=== PATIENT | female | born 1990 | race Caucasian/White ===

== ENCOUNTER 2018-12-18 17:11 | Emergency (ER) | payer OTHER ==
[2018-12-18 17:25] VITALS: BP 126/80
--- NOTE | 2018-12-18 17:34 | UC ---
General HPI - HPI Summary HPI Summary: pt c/o pain to the front of her L knee since Thursday(6 days ago). states hx bursitis and this feels the same. no injury - History of Current Complaint Chief Complaint: UCLowerExtremity Stated Complaint: PAIN LEFT KNEE Time Seen by Provider: 12/18/18 17:23 Hx Obtained From: Patient Hx Last Menstrual Period: year ago- on depo Timing: Constant Pain Intensity: 7 Aggravating: walking Associated Signs & Symptoms: Negative: Edema, Fever - Allergy/Home Medications Allergies/Adverse Reactions: Allergies Allergy/AdvReac Type Severity Reaction Status Date / Time Penicillins AdvReac Intermediate Itching Verified 12/18/18 17:26 contrast dye AdvReac Headache Uncoded 12/18/18 17:26 PMH/Surg Hx/FS Hx/Imm Hx - Additional Past Medical History 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 Endocrine History: Thyroid Disease - CA with resection GI/ History: Other - Pt reports some kidney failure while in the myxedema coma Psychological History: Depression - Surgical History Surgical History: Yes Surgery Procedure, Year, and Place: Thyroidectomy - Family History Known Family History: Positive: Non-Contributory Family History: cancer - Social History Alcohol Use: Rare Substance Use Type: None Smoking Status (MU): Never Smoked Tobacco Review of Systems All Other Systems Reviewed And Are Negative: No Constitutional: Negative: Fever Musculoskeletal: Negative: Decreased ROM, Edema Neurological: Negative: Weakness, Paresthesia, Numbness Physical Exam Triage Information Reviewed: Yes Appearance: Well-Appearing Vital Signs: Initial Vital Signs Temp 98.2 F 12/18/18 17:20 Pulse 104 12/18/18 17:20 Resp 16 12/18/18 17:20 BP 126/80 12/18/18 17:20 Pulse Ox 99 12/18/18 17:20 Vital Signs Reviewed: Yes Eyes: Positive: Conjunctiva Clear Respiratory: Positive: No respiratory distress Cardiovascular: Positive: RRR Neurological: Positive: Other: - LLE: no gross swelling or discoloration. hip non tender. Anterior knee tendernes but no patellar grind. Patella not ballotable. No joint laxity or tenderness over joint line. achilles and ankle are non tender. leg has gross s/v/m function. Psychological: Positive: Age Appropriate Behavior Skin Exam: Normal Skin: Negative: Rashes Course/Dx - Differential Dx - Multi-Symptom Differential Diagnoses: Other - no concern for fx or infection. no joint laxity or effusion. will wrap with leslie and pt may use her crutches for comfort. I will avoid NSAIDS given pt's hx of renal failure during her myxedema coma. will refer to orthopedics. - Diagnoses Provider Diagnosis: Left anterior knee pain Discharge - Sign-Out/Discharge Documenting (check all that apply): Patient Departure All imaging exams completed and their final reports reviewed: No Studies - Discharge Plan Condition: Stable Disposition: HOME Patient Education Materials: Knee Bursitis (ED), Knee Pain (ED) Referrals: Rock Castaneda MD [Medical Doctor] - As Soon As Possible Additional Instructions: USE THE LESLIE DURING DAY AND REMOVE FOR BEDTIME. USE YOUR CRUTCHES FROM HOME. - Billing Disposition and Condition Condition: STABLE Disposition: Home
== END 2018-12-18 17:50 | disposition home or self-care (01) ==
LOC: MERGE 17:11 → UCCORT 17:11
DX: M25.562 Pain in left knee (principal); Z85.850 Personal history of malignant neoplasm of thyroid; E89.0 Postprocedural hypothyroidism
CPT/HCPCS: 99212; G0463

== ENCOUNTER 2019-01-31 14:13 | Emergency (ER) | payer OTHER ==
[2019-01-31 14:43] VITALS: BP 136/89
--- NOTE | 2019-01-31 14:57 | UC ---
Dizzy HPI HPI Summary: 28-year-old female comes in with a chief complaint of dizziness. She was at physical therapy when she stood up and started feeling a spinning sensation. This is about 10:30 this morning. She also reports the left side of her face feels numb and droopy. No headache no fevers. The dizziness is at its worst she feels like he can't speak correctly. No change in vision no difficulty with weakness or numbness in the legs. Patient does have some tingling in the left lower leg that she's had that ever since she has had left knee pain. She is in physical therapy for the knee pain. she took 25 mg meclizine and that did not help with the dizziness. Moving her head and moving her eyes her pupils moving near her make the dizziness worse. - History Of Current Complaint Chief Complaint: UCDizziness Stated Complaint: DIZZINESS Time Seen by Provider: 01/31/19 14:38 Hx Last Menstrual Period: HAS BEEN OVER A YEAR. STOPPED DEPO TWO MONTHS AGO Pain Intensity: 7 - Allergies/Home Medications Allergies/Adverse Reactions: Allergies Allergy/AdvReac Type Severity Reaction Status Date / Time MS Penicillins [Penicillins] AdvReac Intermediate Vomiting Verified 01/31/19 14: 26 Penicillins AdvReac Intermediate Itching Verified 01/31/19 14:26 MRI IV CONTRAST Allergy Severe NAUSEA AND Uncoded 01/31/19 14:26 HEADACHE contrast dye AdvReac Headache Uncoded 01/31/19 14:26 Home Medications: Home Medications Calcium Carbonate CHEW TAB* [Tums*] 2,000 mg PO BID 01/31/19 [History Confirmed 01/31/19] Cholecalciferol (Vitamin D3) [Vitamin D3] 1,000 unit PO 01/31/19 [History] Meclizine TAB* [Antivert 12.5 TAB*] 12.5 mg PO TID PRN 01/31/19 [History Confirmed 01/31/19] Melatonin [Melatonin Maximum Strengt] 10 mg PO BEDTIME PRN 01/31/19 [History Confirmed 01/31/19] hydrOXYzine HCL TAB* [Atarax 10 MG TAB*] 10 mg PO TID PRN 01/31/19 [History Confirmed 01/31/19] PMH/Surg Hx/FS Hx/Imm Hx Previously Healthy: Yes - HX KIDNEY AND LIVER FAILURE Endocrine History: Hypothyroidism - Surgical History Surgical History: Yes Surgery Procedure, Year, and Place: Thyroidectomy. RIGHT WRIST GANGIONECTOMY - Family History Known Family History: Positive: Other - DEGENERATIVE DISC DISEASE IN MOTHER, Non -Contributory Family History: cancer - Social History Alcohol Use: Rare Substance Use Type: None Smoking Status (MU): Never Smoked Tobacco - Immunization History Most Recent Influenza Vaccination: no Review of Systems All Other Systems Reviewed And Are Negative: Yes Constitutional: Positive: Negative Skin: Positive: Negative Eyes: Positive: Negative ENT: Positive: Negative Respiratory: Positive: Negative Cardiovascular: Positive: Negative Gastrointestinal: Positive: Negative Motor: Positive: Other - SEE HPI Neurovascular: Positive: Other - SEE HPI Musculoskeletal: Positive: Other: - SEE HPI Neurological: Positive: Other - SEE HPI Psychological: Positive: Negative Is Patient Immunocompromised?: No Physical Exam Triage Information Reviewed: Yes Appearance: Well-Appearing, No Pain Distress, Well-Nourished Vital Signs: Initial Vital Signs Temp 97.9 F 01/31/19 14:34 Pulse 86 01/31/19 14:34 Resp 17 01/31/19 14:34 BP 136/89 01/31/19 14:34 Pulse Ox 98 01/31/19 14:34 Vital Signs Reviewed: Yes Eye Exam: Normal Eyes: Positive: Conjunctiva Clear, Other: - PERRLA/EOMI ENT: Positive: Pharynx normal, TMs normal Neck: Positive: Supple Respiratory: Positive: Lungs clear, Normal breath sounds, No respiratory distress Cardiovascular: Positive: RRR Musculoskeletal: Positive: ROM Limited @ - LEFT KNEE IN BRACE Neurological: Positive: Other: - On neurologic exam patient reports decreased sensation the left side of her face and when she smiles left side of the mouth does not come up as high as the right side. On finger-nose patient reports her left arm has a more difficult time to perform the finger to nose maneuver. I could not do the [id number] because the patient's left knee is in a brace. I did not find any focal weakness in the arms or legs. No difficulty with speech here in clinic. Psychological Exam: Normal Psychological: Positive: Age Appropriate Behavior Skin Exam: Normal Dizzy Course/Dx - Course Course Of Treatment: Because of the reported decreased sensation in the left side of the face and the left side of the mouth not coming up as far to the right and the reported difficulty with left-sided finger to nose I am unable to completely rule out the possibility of stroke causing dizziness. Patient started had 25 mg of meclizine and reports not being any better. I recommended further evaluation emergency department by apatiesusana declined embolus transport will be going by POV I spoke to the [place] emergency department provider Deepali. - Differential Dx/Diagnosis Provider Diagnosis: Dizziness, Left facial numbness Discharge - Sign-Out/Discharge Documenting (check all that apply): Patient Departure All imaging exams completed and their final reports reviewed: No Studies - Discharge Plan Condition: Stable Disposition: HOME-RECOMMEND TO ED Referrals: Elisa Lieberman [Primary Care Provider] - Additional Instructions: GO DIRECTLY TO THE EMERGENCY DEPARTMENT FOR FURTHER EVALUATION. - Billing Disposition and Condition Condition: STABLE Disposition: Home-Recommend to ED
== END 2019-01-31 15:10 | disposition home health service (06) ==
LOC: UCCORT 14:13
DX: R42 Dizziness and giddiness (principal); R20.0 Anesthesia of skin; Z87.448 Personal history of other diseases of urinary system; Z87.19 Personal history of other diseases of the digestive system
CPT/HCPCS: 99211; G0463

== ENCOUNTER 2019-03-19 13:07 | Emergency (ER) | payer OTHER ==
--- NOTE | 2019-03-19 13:54 | ED ---
Lower Extremity - HPI Summary HPI Summary: This patient is a 28 year old F w hx meniscus tear in December presenting to ED with a chief complaint of left knee pain and swelling since yesterday. Patient reports feeling an intense tearing after physical therapy at 1700 last night. Patient was standing up and felt a sharp pain. Patient sat down and stood back up, and the pain happened again. Patient iced and elevated her knee afterwards. Today, the patient reports her LLE has intermittent paresthesias (which she had in past). On 12/10/18, patient was getting into the pool and twisted her left knee. Workup showed a tear in the meniscus underneath the patella, per patient. Patient has an appointment with christi Deras, in April. At home, patient uses a cane and knee immobilizer. The patient rates the pain 9/10 in severity, sharp shooting pain under her knee cap. Symptoms aggravated by standing. Symptoms alleviated by ice. Patient denies fever. - History of Current Complaint Chief Complaint: EDExtremityLower Stated Complaint: LEFT KNEE PAIN PER PT Time Seen by Provider: 03/19/19 13:16 Hx Obtained From: Patient Mechanism Of Injury: Twisted Onset of Pain: Days - Yesterday Onset/Duration: Days - Yesterday Severity Initially: Severe Severity Currently: Severe Pain Intensity: 9 Pain Scale Used: 0-10 Numeric Timing: Intermittent - Every time trying to stand up Location: Is Discrete @ - Left knee Character Of Pain: Sharp Associated Signs And Symptoms: Positive: Swelling, Knee Pain, Other - Numbness. Negative: Fever Aggravating Factor(s): Standing Alleviating Factor(s): Ice Able to Bear Weight: No - Allergies/Home Medications Allergies/Adverse Reactions: Allergies Allergy/AdvReac Type Severity Reaction Status Date / Time Penicillins AdvReac Intermediate Itching Verified 03/19/19 13:12 MRI IV CONTRAST Allergy Severe NAUSEA AND Uncoded 03/19/19 13:12 HEADACHE contrast dye AdvReac Headache Uncoded 03/19/19 13:12 PMH/Surg Hx/FS Hx/Imm Hx Endocrine/Hematology History: Reports: Hx Thyroid Disease Denies: Hx Diabetes Cardiovascular History: Denies: Hx Hypertension, Hx Pacemaker/ICD Respiratory History: Reports: Hx Asthma, Hx Pneumonia Denies: Hx Chronic Obstructive Pulmonary Disease (COPD) GI History: Denies: Hx Ulcer History: Denies: Hx Kidney Infection Musculoskeletal History: Denies: Hx Arthritis Sensory History: Denies: Hx Hearing Aid Psychiatric History: Denies: Hx Panic Disorder - Cancer History Cancer Type, Location and Year: Thyroid CA - Surgical History Surgery Procedure, Year, and Place: Thyroidectomy. RIGHT WRIST GANGIONECTOMY Infectious Disease History: No Infectious Disease History: Denies: Hx Hepatitis, Hx Human Immunodeficiency Virus (HIV), Traveled Outside the [place] in Last 30 Days - Family History Known Family History: Positive: Other - DEGENERATIVE DISC DISEASE IN MOTHER Family History: cancer - Social History Alcohol Use: Rare Hx Substance Use: No Substance Use Type: Reports: None Hx Tobacco Use: No Smoking Status (MU): Never Smoked Tobacco Review of Systems Negative: Fever Musculoskeletal: Other - Left knee pain swelling and numbness All Other Systems Reviewed And Are Negative: Yes Physical Exam - Summary Physical Exam Summary: General: Well appearing, no distress HEENT: PERRL Cardiovascular: Skin is well perfused Pulmonary: No respiratory distress, no tachypnea Abdomen: Non-distended Skin: Warm, pink, dry MSK: LLE: Tenderness to lateral knee, no obvious ligamentous instability, negative straight leg raise, no tenderness of femur, tib fib/ankle, 2+ DP pulse Psych: Normal affect Neuro: A&Ox3 Triage Information Reviewed: Yes Vital Signs On Initial Exam: Initial Vitals Temp Pulse Resp BP Pulse Ox 98.2 F 102 16 149/99 96 03/19/19 13:08 03/19/19 13:08 03/19/19 13:08 03/19/19 13:08 03/19/19 13:08 Vital Signs Reviewed: Yes Diagnostics - Vital Signs Vital Signs Temp Pulse Resp BP Pulse Ox 03/19/19 13:08 98.2 F 102 16 149/99 96 - Laboratory Lab Statement: Any lab studies that have been ordered have been reviewed, and results considered in the medical decision making process. Re-Evaluation - Re-Evaluation First Eval Re-Evaluation Time: 14:42 Comment: Discussed results with patient. Patient will be discharged home with dx of knee pain. Patient understands and agrees with this plan. Lower Extremity Course/Dx - Course Course Of Treatment: 28-year-old female with a left knee injury 3 months ago and a meniscal tear presents with worsening left knee pain. - Exam limited by body habitus however no obvious swelling or effusions, no ecchymosis. Patient has been intermittently ambulating w the pain. D/w patient re: XRay and agree that we can hold on that given that she had an MRI and known injury. I discussed with her that she should follow-up with orthopedics as scheduled, use a knee immobilizer as needed for pain, and crutches if she is unable to ambulate safely. Will also send a short dose of Percocet for severe pain, and she can take Motrin or naproxen at home. - Diagnoses Provider Diagnoses: Knee pain Discharge - Sign-Out/Discharge Documenting (check all that apply): Patient Departure - Discharge Patient Received Moderate/Deep Sedation with Procedure: No - Discharge Plan Condition: Stable Disposition: HOME Prescriptions: oxyCODONE/Acetamin 5/325 MG* [Percocet 5/325 TAB*] 1 tab PO Q6H PRN 2 Days #8 tab MDD 4 PRN Reason: Pain Patient Education Materials: Knee Pain (ED) Referrals: Elisa Lieberman [Primary Care Provider] - 3 Days Additional Instructions: You were seen in the emergency department for knee pain. Please take Motrin 600 mg every 8 hours or naproxen twice a day for pain. You can also take Tylenol 500 mg every 8 hours for pain. You can take Percocet 5//25 for severe pain. Percocet has Tylenol in it so please do not take Tylenol at the same time. Please- DO NOT DRIVE OR DRINK ALCOHOL WHILE TAKING MORPHINE IR, NORCO, VICODIN, LORTAB, PERCOCET, TRAMADOL, or TYLENOL #3. Only take these medications for as long as you need it to control your pain. If your pain is not severe, unless your doctor has told you not to, you can take Tylenol (acetaminophen) or Motrin (ibuprofen) over the counter instead of these medications. DO NOT take tylenol ( acetaminophen) at the same time as norco, vicodin, lortab, tylenol #3, or percocet at the same time because these medications have tylenol in it. Please follow the directions for these medications on the bottle. If you have extra pills of left over and do not need them any more for pain, please dispose of them by throwing them away in the trash- do not flush these medications. Do not save them for another time or give them to any other person. Please lock up these medications and make sure that no one else has access- especially children and teens or anyone who has issues with drug abuse. If any studies were not completed at the time of discharge you will be called with the relevant results. Please follow up with your primary care doctor in next 2-3 days as well as orthopedics as scheduled and return to emergency department for worsening or concerning symptoms. - Billing Disposition and Condition Condition: STABLE Disposition: Home - Attestation Statements Document Initiated by Mahnaz: Yes Documenting Scribe: Kwadwo Bernardo Provider For Whom Mahnaz is Documenting (Include Credential): Tania Toribio MD Scribe Attestation: IKwadwo, scribed for Tania Toribio MD on 03/19/19 at 9975. Scribe Documentation Reviewed: Yes Provider Attestation: The documentation as recorded by the Kwadwo figueroa accurately reflects the service I personally performed and the decisions made by me, Tania Toribio MD Status of Scribe Document: Viewed
[2019-03-19] MEDS ORDERED: Ibuprofen TAB* 600 MG PO ONE (13:58)
[2019-03-19] MEDS ORDERED: Acetaminophen TAB* 325 MG PO ONE (13:58)
[2019-03-19] MEDS ORDERED: oxyCODONE/Acetamin 5/325 MG* TAB PO ONE (13:58)
[2019-03-19 15:18] VITALS: BP 158/84
== END 2019-03-19 15:17 | disposition home or self-care (01) ==
LOC: ED 13:07
DX: M25.562 Pain in left knee (principal); Z88.0 Allergy status to penicillin; Z91.041 Radiographic dye allergy status; E07.9 Disorder of thyroid, unspecified; J45.909 Unspecified asthma, uncomplicated
CPT/HCPCS: 99282; A9270-GY

== ENCOUNTER 2019-03-20 19:58 | Emergency (ER) | payer OTHER ==
[2019-03-20 20:17] VITALS: BP 147/92
[2019-03-20] MEDS ORDERED: Sulfamethox/Trimethoprim DS 800/160* TAB PO ONE (20:42)
--- NOTE | 2019-03-20 20:42 | ED ---
Throat Pain/Nasal Congestion - HPI Summary HPI Summary: 28 yr old female with the complaint of right sided sinus pressure, post nasal drip and right ear pain. Onset about 5 days ago. SHe has a history of sinus infections in the past. No fever. No change in hearing. No other complaints. - History of Current Complaint Chief Complaint: UCEar Time Seen by Provider: 03/20/19 20:23 - Allergies/Home Medications Allergies/Adverse Reactions: Allergies Allergy/AdvReac Type Severity Reaction Status Date / Time Penicillins Allergy Intermediate Itching Verified 03/20/19 20:18 MRI IV CONTRAST AdvReac Severe NAUSEA AND Uncoded 03/20/19 20:18 HEADACHE contrast dye AdvReac Headache Uncoded 03/19/19 13:12 Home Medications: Home Medications Cyclobenzaprine TAB* [Flexeril 10 MG TAB*] 20 mg PO DAILY PRN 03/20/19 [History Confirmed 03/20/19] Naproxen Sodium [Aleve] 440 mg PO ONCE PRN 03/20/19 [History Confirmed 03/20/19] PMH/Surg Hx/FS Hx/Imm Hx Endocrine/Hematology History: Reports: Hx Thyroid Disease Denies: Hx Diabetes Cardiovascular History: Denies: Hx Hypertension, Hx Pacemaker/ICD Respiratory History: Reports: Hx Asthma, Hx Pneumonia Denies: Hx Chronic Obstructive Pulmonary Disease (COPD) GI History: Denies: Hx Ulcer History: Denies: Hx Kidney Infection Musculoskeletal History: Denies: Hx Arthritis Sensory History: Denies: Hx Hearing Aid Psychiatric History: Denies: Hx Panic Disorder - Cancer History Cancer Type, Location and Year: Thyroid CA - Surgical History Surgery Procedure, Year, and Place: Thyroidectomy. RIGHT WRIST GANGIONECTOMY Infectious Disease History: No Infectious Disease History: Denies: Hx Hepatitis, Hx Human Immunodeficiency Virus (HIV), Traveled Outside the [place] in Last 30 Days - Family History Known Family History: Positive: Other - DEGENERATIVE DISC DISEASE IN MOTHER Family History: cancer - Social History Occupation: Unemployed Alcohol Use: Rare Hx Substance Use: No Substance Use Type: Reports: None Hx Tobacco Use: No Smoking Status (MU): Never Smoked Tobacco Review of Systems Constitutional: Negative Positive: Ear Ache, Other - right sinus pain All Other Systems Reviewed And Are Negative: Yes Physical Exam Triage Information Reviewed: Yes Vital Signs On Initial Exam: Initial Vitals Temp Pulse Resp BP Pulse Ox 98.3 F 88 16 147/92 99 03/20/19 20:12 03/20/19 20:12 03/20/19 20:12 03/20/19 20:12 03/20/19 20:12 Vital Signs Reviewed: Yes Appearance: Positive: Well-Appearing, No Pain Distress Skin: Positive: Warm, Skin Color Reflects Adequate Perfusion Head/Face: Positive: Normal Head/Face Inspection Eyes: Positive: EOMI ENT: Positive: TMs normal, Sinus tenderness - right side Neck: Positive: Supple, Nontender Respiratory/Lung Sounds: Positive: Clear to Auscultation, Breath Sounds Present Cardiovascular: Positive: RRR. Negative: Murmur Abdomen Description: Negative: Distended Musculoskeletal: Positive: Strength/ROM Intact Neurological: Positive: Sensory/Motor Intact, Alert, Oriented to Person Place, Time, CN Intact II-III Psychiatric: Positive: Normal Diagnostics - Vital Signs Vital Signs Temp Pulse Resp BP Pulse Ox 03/20/19 20:12 98.3 F 88 16 147/92 99 - Laboratory Lab Statement: Any lab studies that have been ordered have been reviewed, and results considered in the medical decision making process. EENT Course/Dx - Course Course Of Treatment: 28 yr old with sinusitis right sided. DC home. FU with PMD. Bactrim script. - Diagnoses Provider Diagnoses: Acute bacterial sinusitis, Hypertension Discharge - Sign-Out/Discharge Documenting (check all that apply): Patient Departure All imaging exams completed and their final reports reviewed: No Studies - Discharge Plan Condition: Good Disposition: HOME Prescriptions: Sulfamethox/Trimethoprim DS* [Bactrim DS 800/160 TAB*] 1 tab PO BID #20 tab Patient Education Materials: Sinusitis (ED), Hypertension (ED) Referrals: Elisa Lieberman [Primary Care Provider] - [facility] [place] [facility]ERR[facility] [Outside] - 2 Days - Billing Disposition and Condition Condition: GOOD Disposition: Home
== END 2019-03-20 20:50 | disposition home or self-care (01) ==
LOC: UCCORT 19:58
DX: J01.90 Acute sinusitis, unspecified (principal); B96.89 Other specified bacterial agents as the cause of diseases classified elsewhere; I10 Essential (primary) hypertension; Z88.0 Allergy status to penicillin
CPT/HCPCS: 99212; A9270-GY; G0463

== ENCOUNTER → 2019-04-27 05:47 | Day surgery (SDC) | payer BC ==
[~2019-04-27 05:47] MED LIST: Buffered Lidocaine 1% SYRIN* 1 ML/SYRINGE INTRADERM ONE; Clindamycin 900 MG/D5W BAG(*) 900 MG/50 ML BAG IVPB ONE; Dexamethasone IV* 4 MG/ML 1 ML (4 MG) ONE; EPHEDrine (Pressors)* 50 MG/ML VIAL ONE; Famotidine IV* 10 MG/ML 2 ML (20 mg) IV ONE; Famotidine IV* 10 MG/ML 2 ML (20 mg) ONE; KETAMINE HCL* 50 MG/ML 10 ML VIAL ONE; Ketorolac INJ* 30 MG/ML 1 ML VIAL ONE; Labetalol IV* 5 MG/ML 20 ML VIAL ONE; Lactated Ringers 1000 ML Bag* 1,000 ML IV SCH; Levalbuterol 0.63MG/3ML NEB* UNIT OF USE INH PRN; Lidocaine 1% w EPI 1:200,000* SDV 30 ML VIAL ONE; Lidocaine 2% PF * 5 ML VIAL ONE; Midazolam* 1 MG/ML 5 ML VIAL (5 MG) ONE; Naloxone* 0.4 MG/ML 1 ML VIAL IV PRN; Ondansetron INJ* 2 MG/ML VIAL IV PRN; Ondansetron INJ* 2 MG/ML VIAL ONE; Propofol* 10 MG/ML 20 ML BTL ONE; Ropivacaine 0.2% * 2 MG/ML VIAL ONE; ceFAZolin 1 GM ADVAN(*) 1 GM ADDV.VIAL IVPB ONE; ceFAZolin 2 GM PREMIX in ORs 2 GM/50 ML BAG ONE; fentaNYL* 50 MCG/ML 2 ML VIAL (100 MCG VIAL) ONE
[2019-04-27] MEDS: fentaNYL* 50 MCG/ML 2 ML VIAL (100 MCG VIAL) IV PRN ×3 (09:05→09:47)
[2019-04-27 10:35] VITALS: BP 154/97
--- NOTE | 2019-04-28 15:39 | OP ---
CC: Elisa ZHANG NP * DATE OF OPERATION: 04/27/19 - [facility] DATE OF : 86 SURGEON: Christian Salazar MD DISPATCHER RELAY: CIRA Muñiz An starch treating assistant was needed for the entirety of the case to help with positioning and retraction due to the patient's size. 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 POST-OP DIAGNOSES: Patellar chondrosis with unstable flap, medial femoral condyle chondrosis, and lateral meniscal fraying. OPERATIVE PROCEDURE: Left knee arthroscopy with chondroplasty of the medial femoral condyle in the patella and partial lateral meniscectomy. COMPLICATIONS: None. ESTIMATED BLOOD LOSS: Minimal. INDICATIONS: Marjorie Zamora is a 28-year-old female who has had persistent knee pain for months. It happened after an injury in December. She has failed conservative management including physical therapy, antiinflammatories, ice, heat, and injections. After extensive discussion and multiple opinions, she has elected to proceed with surgical treatment. Risks and benefits were discussed at length including but not limited to bleeding; infection; damage to nerves, vessels, surrounding structures; wound nonhealing; persistent pain; need for further surgery; scarring; stiffness; incomplete relief of symptoms; risks of anesthesia. DESCRIPTION OF PROCEDURE: The patient was greeted in the preoperative area by the attending surgeon. Correct extremity was marked and consent was confirmed. The patient was brought back to the operating suite and placed in supine position on the operating table. She then underwent general anesthesia. The patient was then appropriately positioned in the bed. An unsterile tourniquet was placed high in the proximal thigh. The lateral post was positioned. The left leg was then prepped and draped in the usual sterile fashion beginning with chlorhexidine soap, scrub, and alcohol wipe and a final prep with ChloraPrep. After appropriate surgical pause indicating side, site, procedure, and administration of antibiotics, the knee was intra-articularly injected with 1% lidocaine with epi. The anterolateral portal was made sharply with 11 blade. Scope was introduced into the joint. Joint was examined. There was abundant synovitis that was apparent, that was debrided back using the shaver and electrocautery device. The ACL and PCL were intact. The trochlea had grade 0 changes. The patella had grade 2 changes, particularly in the middle with unstable flaps which were debrided back using the shaver. The medial and lateral gutters were intact without any loose debris. The medial femoral condyle was examined and there was a small area of grade 2 changes that was debrided back using the shaver. Medial meniscus was intact and probed. The knee was placed in [id number] position and the lateral meniscus was evaluated. There was some fraying at the root and at the body of the meniscus which was debrided back using the shaver. Otherwise, remainder of the lateral femoral condyle had grade 0 to 1 changes, lateral plateau had grade 0 to 1 changes. The knee was then thoroughly lavaged, removed any loose debris. Once all the unstable flaps were removed and the synovitis was removed, the knee was sterilely lavaged. The wounds were copiously irrigated with sterile saline. Portals were closed with 3-0 nylon in interrupted fashion. Sterile dressings were applied. The wound was superficially and intra- articularly injected with 0.2% ropivacaine. Sterile dressings were applied and Cryo/Cuff. She was awoken from anesthesia and transferred to PACU in stable condition. POSTOPERATIVE PLAN: She will be weightbearing as tolerated with crutches. She will range of motion as tolerated. Discharged on pain medications. DVT prophylaxis was considered, but deferred due to no previous personal or family history. We will place her on aspirin. I will see the patient back in 10 to 14 days. [id number]/[facility] #: [id number] SHERRY
== END | disposition home or self-care (01) ==
LOC: OR 05:47
PROVIDERS: ATTEND Orthopaedic Surgery
DX: M22.42 Chondromalacia patellae, left knee (principal); M25.462 Effusion, left knee; M92.8 Other specified juvenile osteochondrosis; S83.282A Other tear of lateral meniscus, current injury, left knee, initial encounter; W22.8XXA Striking against or struck by other objects, initial encounter; Y92.59 Other trade areas as the place of occurrence of the external cause
CPT/HCPCS: J0690; J1100; J1885; J2001; J2250; J2405; J2704; J2795; J3010

== ENCOUNTER 2019-07-28 18:05 | Emergency (ER) | payer BC ==
--- OUTSIDE RECORDS SUMMARY | 2019-07-28 18:18 | XMS REPORT | Continuity of Care Document ---
:1990 External Reference #:[id number] Author Name Christian Salazar MD (transmitted by agent of provider Jennifer Sanchez) Address [address] [facility], [facility] [place] [address] Care Team Providers Name Role Phone Elisa Lieberman F.N.P - Family Care Team Information Director Of Donor Relations [phone] Problems Active Problems Provider Date Postconcussion syndrome Onset: 10/14/2012 Depressive disorder Onset: 10/14/2012 Anxiety state Onset: 10/14/2012 Migraine Onset: 10/14/2012 Chondromalacia of patella Christian Salazar MD Onset: 04/12/2019 Knee joint effusion Christian Salazar MD Onset: 04/12/2019 Current tear of lateral cartilage AND/OR meniscus Christian Salazar MD Onset: 08/2018 of knee Social History Type Date Description Comments Sex Unknown ETOH Use Denies alcohol use Tobacco Use Start: Unknown Patient has never smoked Recreational Drug Use Denies Drug Use Smoking Status Reviewed: 06/07/19 Patient has never smoked Exercise Type/Frequency Does not exercise Allergies, Adverse Reactions, Alerts Active Allergies Reaction Severity Comments Date Penicillin 08/13/2018 IV Dye 04/12/2019 Medications Active Medications SIG Qnty Indications Ordering Date Provider Fidencio Pt takes 4000mg Trae 04/13/2019 500mg Chewtabs daily for MD Yonathan calcium Cyclobenzaprine HCL 1 by mouth 45tabs 728.85 Trae 10/03/2014 10mg three times a MD Yonathan Tablets day Ibuprofen 1 by mouth 719.41 Unknown 800mg Tablets three times a day as needed Fluoxetine HCL 1 by mouth Unknown 40mg Capsules every day Wellbutrin 1 by mouth Unknown 75mg Tablets every day as needed Hydroxyzine HCL 1 by mouth 3 Unknown 10mg Tablets times daily as needed Levothyroxine Sodium 1 by mouth Unknown 75mcg every day Tablets Vitamin D 3 1 tablet by Unknown mouth daily (unsure of strength) History Medications Percocet 1 tabs by mouth elia Salazar MD 04/27/2019 - 5-325mg every 4-6 hours as 05/10/2019 Tablets needed pain Keflex take 1 tab by josiane Salazar MD 04/27/2019 - 500mg Capsules mouth four times a 05/10/2019 day x 3 days Immunizations CPT Code Status Date Vaccine Lot # 75036 Given 11/01/2014 Tdap - Tetanus/Diptheria/Acellular Pertussis 01175 Given 03/03/2008 Meningitis MCV4 MenACWY Meningococcal Conjugate Vaccine 17287 Given 11/26/2004 Tetanus And Diptheria (Td) For Adult Use Preservative Free 70334 Given 11/26/2004 Tetanus And Diptheria (Td) For Adult Use Preservative Free 87823 Given 04/28/2002 Hepatitis B Sai Adoles For Intramuscular Use 62938 Given 12/13/2001 Hepatitis B Sai Adoles For Intramuscular Use 66541 Given 03/12/1994 Measles Mumps And Rubella MMR 79528 Given 03/12/1994 DTP Vaccine 00969 Given 03/13/1993 Poliovirus Vaccine OPV Live Oral Use 55705 Given 03/13/1993 DTP Vaccine 98357 Given 06/23/1991 Poliovirus Vaccine OPV Live Oral Use 85741 Given 06/23/1991 DTP Vaccine 19434 Given 04/06/1991 Poliovirus Vaccine OPV Live Oral Use 88577 Given 04/06/1991 Measles Mumps And Rubella MMR 10815 Given 04/06/1991 DTP Vaccine 80080 Given 04/06/1991 Hib PRP-T Conjugate 4 Dose Schedule Vital Signs Date Vital Result Comment 06/07/2019 8:23am Height 64.5 inches 5'4.50" Weight 290.00 lb Heart Rate 80 /min BP Systolic 140 mmHg BP Diastolic 98 mmHg Respiratory Rate 18 /min Body Temperature 97.5 F Pain Level 2 BMI (Body Mass Index) 49.0 kg/m2 05/10/2019 10:56am Height 64.5 inches 5'4.50" Weight 290.00 lb Heart Rate 88 /min BP Systolic Sitting 128 mmHg BP Diastolic Sitting 92 mmHg Body Temperature 99.1 F Pain Level 4 BMI (Body Mass Index) 49.0 kg/m2 Results Description No Information Available Procedures Date Code Description Status 04/27/2019 65156 Arthroscopy,Knee,Meniscectomy Medial Or Lateral Completed 04/27/2019 53929 Arthroscopy,Knee,Meniscectomy Medial Or Lateral Completed 04/21/2019 95448 Holter Monitor Review (24 hr)dr review & interp only Completed 04/19/2019 81537 ECHO Transthoracic, Real-Time 2D With Doppler And Color Completed Flow 04/19/2019 03708 ECHO Transthoracic, Real-Time 2D With Doppler And Color Completed Flow 04/19/2019 90178 ECHO Transthoracic, Real-Time 2D With Doppler And Color Completed Flow 04/14/2019 63299 ECG Monitor/Recording W/Visual Superimposition Scanning Completed 04/14/2019 21517 ECG Monitor/Recording W/Visual Superimposition Scanning Completed 04/14/2019 17698 EKG Tracing & Interpretation Completed Medical Devices Description No Information Available Encounters Type Date Location Provider Dx Diagnosis Office Visit 04/20/2019 [facility] Lisa Pool R00.2 Palpitations 4:40p Juan José Burnham E66.9 Obesity, unspecified Z01.810 Encounter for preprocedural cardiovascular examination R03.0 Elevated blood-pressure reading, w/o diagnosis of htn M22.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, left knee Office Visit 04/14/2019 Claudio Polo Z01.810 Encounter for 8:30a Cardiology Juan José Burnham preprocedural cardiovascular examination R00.2 Palpitations E66.9 Obesity, unspecified R06.83 Snoring I10 Essential (primary) hypertension R94.31 Abnormal electrocardiogram [ECG] [EKG] R00.0 Tachycardia, unspecified Office Visit 04/12/2019 Claudio Salazar M22.42 Chondromalacia 3:00p Orthopedics at patellae, left knee [place] M25.462 Effusion, left knee Assessments Date Code Description Provider 06/07/2019 S83.282D Other tear of lateral meniscus, Christian Salazar MD current injury, left knee, subsequent encounter 05/10/2019 S83.282D Other tear of lateral meniscus, Christian Salazar MD current injury, left knee, subsequent encounter 04/27/2019 S83.282A Other tear of lateral meniscus, Felisha Jay PA-C current injury, left knee, initial encounter 04/27/2019 S83.282A Other tear of lateral meniscus, Christian Salazar MD current injury, left knee, initial encounter 04/21/2019 R00.2 Palpitations Lisa Burnham M.D. 04/20/2019 R00.2 Palpitations Lisa Burnham M.D. 04/20/2019 E66.9 Obesity, unspecified Lisa Burnham M.D. 04/20/2019 Z01.810 Encounter for preprocedural Lisa Burnham M.D. cardiovascular examination 04/20/2019 R03.0 Elevated blood-pressure reading, Lisa Burnham M.D. without diagnosis of hypertension 04/20/2019 M22.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, left knee Lisa Burnham M.D. 04/19/2019 R00.2 Palpitations Lisa Burnham M.D. 04/19/2019 R00.2 Palpitations Ica ECHO Schedule 04/19/2019 E66.9 Obesity, unspecified Ica ECHO Schedule 04/19/2019 R00.2 Palpmadison Burnham M.D. 04/19/2019 R06.83 Snoring Ica ECHO Schedule 04/19/2019 I10 Essential (primary) hypertension Ica ECHO Schedule 04/19/2019 R94.31 Abnormal electrocardiogram [ECG] Ica ECHO Schedule [EKG] 04/19/2019 R00.0 Tachycardia, unspecified Ica ECHO Schedule 04/14/2019 R00.2 Palpitations Lisa Burnham M.D. 04/14/2019 R00.2 Palpitations Nurse Visit cc 04/14/2019 Z01.810 Encounter for preprocedural Lisa Burnham M.D. cardiovascular examination 04/14/2019 R00.2 Palpitations Lisa Burnham M.D. 04/14/2019 E66.9 Obesity, unspecified Lisa Burnham M.D. 04/14/2019 R06.83 Snoring Lisa Burnham M.D. 04/14/2019 I10 Essential (primary) hypertension Lisa Burnham M.D. 04/14/2019 R94.31 Abnormal electrocardiogram [ECG] Lisa Burnham M.D. [EKG] 04/14/2019 R00.0 Tachycardia, unspecified Lisa Burnham M.D. 04/12/2019 M22.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, left knee Christian Salazar MD 04/12/2019 M25.462 Effusion, left knee Christian Salazar MD Plan of Treatment 06/07/2019 - [facility] [place]83.282D Other tear of lateral meniscus, current injury, left knee, subsequent encounterReferral:Damion Mcmahan MD, EndocrinologyFollow up:Follow up: Functional Status Description No Information Available Mental Status Description No Information Available Referrals Refer to Reason for Referral Status Appt Date Damion Mcmahan MD Created [address] [place] [address] [phone] Lisa Burnham MD [facility] 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 She has a loop monitor and she is being scheduled for a Left Knee Arthroscopy with Dr. Salazar. Date pending cardiac clearance. Surgery pended for 04/27 or 05/11. [address] [facility] [address] [place] [address] [phone]
[2019-07-28 18:36] VITALS: BP 135/100
[2019-07-28] MEDS ORDERED: predniSONE TAB* 20 MG PO ONE (18:44)
--- NOTE | 2019-07-28 19:24 | UC ---
Allergic Reaction HPI - HPI Summary HPI Summary: Pt presents with c/o "allergic reaction" with diffuse itchy skin that began yesterday. Pt states that she pang not have hives and when she has an allergic reaction she has small pin prick raised red rash. Pt denies exposure to known allergen. Dneis difficulty breathing, lip or tongue swelling. Pt took benadryl today at 1500 and stated that "itchy skin improved" - History of Current Complaint Chief Complaint: UCAllergicReaction Stated Complaint: POS ALERGIAC REACTION Time Seen by Provider: 07/28/19 18:37 Hx Obtained From: Patient Hx Last Menstrual Period: 07/12/19 ?: No Onset/Duration: Sudden Onset, Lasting Days, Still Present Severity Initially: Moderate Severity Currently: Moderate Pain Intensity: 6 Pain Scale Used: 0-10 Numeric Character: Pruritus Aggravating Factor(s): Nothing Alleviating Factor(s): Antihistamines Associated Signs And Symptoms: Positive: Rash - Related Hx Possible Reaction To: Unknown - Allergies/Home Medications Allergies/Adverse Reactions: Allergies Allergy/AdvReac Type Severity Reaction Status Date / Time Penicillins Allergy Intermediate Itching Verified 07/28/19 18:17 contrast dye AdvReac Headache Uncoded 07/28/19 18:17 Home Medications: Home Medications diPHENhydraMINE PO* [Benadryl PO 25 MG TAB*] 50 mg PO Q6H PRN 07/28/19 [History Confirmed 07/28/19] PMH/Surg Hx/FS Hx/Imm Hx Previously Healthy: Yes - Surgical History Surgical History: Yes Surgery Procedure, Year, and Place: 2013 & JUN. PARTIAL Thyroidectomy, THEN COMPLETED [facility] [facility]. 2010 RIGHT WRIST GANGIONECTOMY [place]. left knee, apr 2019. vocal cord surgery - Family History Known Family History: Positive: Other - DEGENERATIVE DISC DISEASE IN MOTHER Family History: cancer - Social History Occupation: Works From/At Home Lives: With Family Alcohol Use: Rare Alcohol Amount: MAYBE 1-2 DRINKS/YEAR Substance Use Type: None Smoking Status (MU): Never Smoked Tobacco Have You Smoked in the Last Year: No - Immunization History Most Recent Influenza Vaccination: no Review of Systems All Other Systems Reviewed And Are Negative: Yes Constitutional: Positive: Negative Skin: Positive: Rash Eyes: Positive: Negative ENT: Positive: Negative Respiratory: Positive: Negative Cardiovascular: Positive: Negative Gastrointestinal: Positive: Negative Genitourinary: Positive: Negative Motor: Positive: Negative Neurovascular: Positive: Negative Musculoskeletal: Positive: Negative Neurological: Positive: Negative Psychological: Positive: Negative Is Patient Immunocompromised?: No Physical Exam Triage Information Reviewed: Yes Appearance: Obese Vital Signs: Initial Vital Signs Temp 98.2 F 07/28/19 18:28 Pulse 100 07/28/19 18:28 Resp 20 07/28/19 18:28 BP 135/100 07/28/19 18:28 Pulse Ox 99 07/28/19 18:28 Vital Signs Reviewed: Yes Eye Exam: Normal ENT Exam: Normal Dental Exam: Normal Neck exam: Normal Respiratory Exam: Normal Cardiovascular Exam: Normal Musculoskeletal Exam: Normal Neurological Exam: Normal Psychological Exam: Normal Skin: Positive: Rashes - diffuse macular papular fine rash across trunk. Allergic Reaction Course/Dx - Differential Dx/Diagnosis Differential Diagnosis/HQI/PQRI: Local Allergic Reaction Provider Diagnosis: Itchy skin, Rash and nonspecific skin eruption Discharge ED - Sign-Out/Discharge Documenting (check all that apply): Patient Departure All imaging exams completed and their final reports reviewed: No Studies - Discharge Plan Condition: Stable Disposition: HOME Prescriptions: Cetirizine* [ZyrTEC 10 MG TAB*] 10 mg PO DAILY #7 tab predniSONE TAB* [Deltasone 10 MG TAB*] 30 mg PO DAILY #12 tab Patient Education Materials: Antihistamine (By mouth), Itchy Skin (ED) Referrals: [facility] [Outside] - If Needed No Primary Care Phys,NOPCP [Primary Care Provider] - - Billing Disposition and Condition Condition: STABLE Disposition: Home
== END 2019-07-28 18:56 | disposition home or self-care (01) ==
LOC: UCCORT 18:05
DX: R21 Rash and other nonspecific skin eruption (principal); L29.9 Pruritus, unspecified; Z88.0 Allergy status to penicillin; Z91.041 Radiographic dye allergy status
CPT/HCPCS: 99212; G0463; J7512

== ENCOUNTER 2019-10-06 12:53 | Emergency (ER) | payer BC ==
--- OUTSIDE RECORDS SUMMARY | 2019-10-06 14:15 | XMS REPORT | Continuity of Care Document ---
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 Problems Active Problems Provider Date Postconcussion syndrome Onset: 10/14/2012 Depressive disorder Onset: 10/14/2012 Anxiety state Onset: 10/14/2012 Migraine Onset: 10/14/2012 Chondromalacia of patella Christian Salazar MD Onset: 04/12/2019 Knee joint effusion Christian Salazar MD Onset: 04/12/2019 Current tear of lateral cartilage AND/OR meniscus Christian Salazar MD Onset: 08/2018 of knee Patellar tendonitis Christian Salazar MD Onset: 07/12/2019 Social History Type Date Description Comments Sex Unknown ETOH Use Rarely consumes alcohol Tobacco Use Start: Unknown Patient has never smoked Recreational Drug Use Denies Drug Use Smoking Status Reviewed: 09/22/19 Patient has never smoked Exercise Type/Frequency Exercises regularly walking, 2 days per week, 30 minutes and PT for knee. Allergies, Adverse Reactions, Alerts Active Allergies Reaction Severity Comments Date Penicillin hives 08/13/2018 IV Dye nausea and headache 04/12/2019 Diclofenac hives 08/09/2019 Medications Active Medications SIG Qnty Indications Ordering Provider Date Calcitriol 1 capsule by 30capsagar Mcmahan MD 08/15/2019 0.25mcg mouth daily Capsules Meloxicam 1 tablet by 14tabs Tito Espinosa MD 08/09/2019 15mg Tablets mouth daily. Levothyroxine Sodium 1 by mouth every 90tabs Damion Mcmahan MD 08/09/2019 day 200mcg Tablets Tums Pt takes 6000 mg Trae 04/13/2019 500mg Chewtabs daily for MD Yonathan calcium Ibuprofen 1 by mouth three 719.41 Unknown 800mg Tablets times a day as needed Fluoxetine HCL 1 by mouth every Unknown 40mg day Capsules Wellbutrin 1 by mouth every Unknown 75mg Tablets day Hydroxyzine HCL 1 by mouth 3 Unknown 10mg times daily as Tablets needed Vitamin D3 1 by mouth every Unknown 25mcg (1000 day Ut) Capsules History Medications Medrol take as directed 21units S83.282D Christian Salazar, 08/23/2019 - 4mg TBPK by packaging 09/21/2019 Diclofenac Sodium take 1 tablet 60tabs M76.52 Christian Salazar, 07/12/2019 - twice a day with 08/08/[address] food Percocet 1 tabs by mouth 12tabs Christian Salazar, 04/27/2019 - 5-325mg every 4-6 hours 05/10/2019 Tablets as needed pain Keflex take 1 tab by 12caps Christian Salazar, 04/27/2019 - 500mg mouth four times 05/10/2019 Capsules a day x 3 days Immunizations CPT Code Status Date Vaccine Lot # [id number] Given 11/01/2014 Tdap - Tetanus/Diptheria/Acellular Pertussis 51860 Given 03/03/2008 Meningitis MCV4 MenACWY Meningococcal Conjugate Vaccine 28230 Given 11/26/2004 Tetanus And Diptheria (Td) For Adult Use Preservative Free 21915 Given 11/26/2004 Tetanus And Diptheria (Td) For Adult Use Preservative Free 13259 Given 04/28/2002 Hepatitis B Sai Adoles For Intramuscular Use 69139 Given 12/13/2001 Hepatitis B Sai Adoles For Intramuscular Use 78657 Given 03/12/1994 Measles Mumps And Rubella MMR 32997 Given 03/12/1994 DTP Vaccine 04127 Given 03/13/1993 Poliovirus Vaccine OPV Live Oral Use 18493 Given 03/13/1993 DTP Vaccine 58948 Given 06/23/1991 Poliovirus Vaccine OPV Live Oral Use 47002 Given 06/23/1991 DTP Vaccine 47893 Given 04/06/1991 Poliovirus Vaccine OPV Live Oral Use 24087 Given 04/06/1991 Measles Mumps And Rubella MMR 52372 Given 04/06/1991 DTP Vaccine 00555 Given 04/06/1991 Hib PRP-T Conjugate 4 Dose Schedule Vital Signs Date Vital Result Comment 09/22/2019 2:02pm Height 64.5 inches 5'4.50" Weight 283.00 lb Heart Rate 87 /min Respiratory Rate 16 /min Pain Level 7 BMI (Body Mass Index) 47.8 kg/m2 08/23/2019 10:01am Height 64.5 inches 5'4.50" Weight 293.00 lb Heart Rate 111 /min Respiratory Rate 16 /min Body Temperature 97.3 F Pain Level 7 BMI (Body Mass Index) 49.5 kg/m2 Results Test Acquired Date Facility Test Result H/L Range Note Laboratory test 09/13/2019 [facility] TSH 0.23 mcIU/mL Low 0.34-5.60 1, 2 finding [address] [employer] ([place] [address] Stim Horm) [phone] Hemoglobin A1c (Glyco HGB) 5.3 % Normal 4.0-5.6 3 Thyroglobulin 08/09/2019 [facility] Thyroglobulin <1.8 IU/mL <4.[address] [place] [address] [phone] Thyroglobulin Tumor Marker 2.5 ng/mL Abnormal 4 Thyroglobulin Interpretation See Comment 5 Pthi 08/09/2019 [facility] Calcium (PTH 8.6 mg/dL Normal 8.6- [address] DR[address] Intact) [place] [address] [phone] PTH Intact 49.4 pg/mL Normal 12-88 Comp Metabolic 08/09/2019 [facility] Sodium 136 mmol/L Normal 135-[address] [place] [address] [phone] Potassium 3.9 mmol/L Normal 3.5-5.0 Chloride 102 mmol/L Normal 101-111 Co2 Carbon Dioxide 26 mmol/L Normal 22-32 Anion Gap 8 mmol/L Normal 2-11 Glucose 116 mg/dL High 70-100 Blood Urea Nitrogen 12 mg/dL Normal 6-24 Creatinine 0.92 mg/dL Normal 0.51-0.95 BUN/Creatinine Ratio 13.0 Normal 8-20 Calcium 8.7 mg/dL Normal 8.6-10.3 Total Protein 7.0 g/dL Normal 6.4-8.9 Albumin 3.8 g/dL Normal 3.2-5.2 Globulin 3.2 g/dL Normal 2-4 Albumin/Globulin Ratio 1.2 Normal 1-3 Total Bilirubin 0.30 mg/dL Normal 0.2-1.0 Alkaline Phosphatase 68 U/L Normal 34-104 Alt 16 U/L Normal 7-52 Ast 13 U/L Normal 13-39 Egfr Non- 71.7 >60 Egfr 86.7 >60 6 Laboratory test 08/09/2019 [facility] TSH (Thyroid 11.38 High 0.34-5.[address] Stim Horm) mcIU/[place] [address] [phone] Free T4 (Free Thyroxine) 0.94 ng/dL Normal 0.61-1.12 1,25 Dihydroxy 08/09/2019 [facility] Calcitriol 10 pg/mL Abnormal 18-78 7 Vitamin D [address] [place] [address] [phone] Laboratory test 08/09/2019 [facility] Vitamin D 24.9 Normal 20 -50 [address] Total 25(Oh) ng/[place] [address] [phone] Phosphorus 2.9 mg/dL Normal 2.5-5.0 Magnesium 1.7 mg/dL Low 1.9-2.7 1 2 cc: Dr. Mcmahan [id number] Therapeutic target for the treatment of diabetes mellitus patients is <7% HBA1C, and in selective patients <6.0%. Please refer to [place] [employer] Association diabetic care guidelines for further information. 4 REFERENCE VALUE Athyrotic <0.1 Intact Thyroid <=33 5 Thyroglobulin (Tg) levels must be interpreted in the context of TSH levels, serial Tg measurements and radioiodine ablation status. Tg levels of 2.1-9.9 ng/mL in athyrotic individuals on suppressive therapy indicate an increased risk of clinically detectable recurrent papillary/follicular thyroid cancer. ADDITIONAL INFORMATION PLEASE NOTE: Thyroglobulin flagging is based on athyrotic reference values. The thyroglobulin and thyroglobulin antibody testing methods are immunoenzymatic assays manufactured by [employer] and performed on the [employer] DXI 800. Values obtained from different assay methods or kits may be different and cannot be used interchangeably. The results cannot be interpreted as absolute evidence for the presence or absence of malignant disease. Test Performed by: [facility] [place] [address] Bulk Intake Worker: Jorje Roque M.D. Ph.D.; CLIA# [id number] 6 Because ethnic data is not always readily available, this report includes an eGFR for both -Americans and non- Americans. The National Kidney Disease Education Program (NKDEP) does not endorse the use of the MDRD equation for patients that are not between the ages of 18 and 70, are , have extremes of body size, muscle mass, or nutritional status, or are non- or non-. According to the National Kidney Foundation, irrespective of diagnosis, the stage of the disease is based on the level of kidney function: Stage Description GFR(mL/min/1.73 m(2)) 1 Kidney damage with normal or decreased GFR 90 2 Kidney damage with mild decrease in GFR 60-89 3 Moderate decrease in GFR 30-59 4 Severe decrease in GFR 15-29 5 Kidney failure <15 (or dialysis) 7 ADDITIONAL INFORMATION This test was developed and its performance characteristics determined by [facility] in a manner consistent with CLIA requirements. This test has not been cleared or approved by the U.S. Food and Drug Administration. Test Performed by: [facility] [place] [address] Bulk Intake Worker: Jorje Roque M.D. Ph.D.; CLIA# [id number] 8 Total 25-Hydroxyvitamin D2 and D3 (25-OH-VitD) <10 ng/mL (severe deficiency) 10-19 ng/mL (mild to moderate deficiency) 20-50 ng/mL (optimum levels) 51-80 ng/mL (increased risk of hypercalciuria) >80 ng/mL (toxicity possible) Procedures Date Code Description Status 04/27/2019 58619 Arthroscopy,Knee,Meniscectomy Medial Or Lateral Completed 04/27/2019 06974 Arthroscopy,Knee,Meniscectomy Medial Or Lateral Completed 04/21/2019 22829 Holter Monitor Review (24 hr)dr review & interp only Completed 04/19/2019 87438 ECHO Transthoracic, Real-Time 2D With Doppler And Color Completed Flow 04/19/2019 09845 ECHO Transthoracic, Real-Time 2D With Doppler And Color Completed Flow 04/19/2019 77173 ECHO Transthoracic, Real-Time 2D With Doppler And Color Completed Flow 04/14/2019 25541 ECG Monitor/Recording W/Visual Superimposition Scanning Completed 04/14/2019 02344 ECG Monitor/Recording W/Visual Superimposition Scanning Completed 04/14/2019 55955 EKG Tracing & Interpretation Completed Medical Devices Description No Information Available Encounters Type Date Location Provider Dx Diagnosis Office Visit 08/23/2019 [facility] Christian Salazar MD S83.282D Oth tear of lat 10:15a at [facility], current injury, left knee, subs M22.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, left knee Office Visit 08/09/2019 [facility] Bruno Coch, E89.0 Postprocedural 9:00a Endocrinology of hypothyroidism 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 E83.51 Hypocalcemia Z85.850 Personal history of malignant neoplasm of thyroid E89.2 Postprocedural hypoparathyroidism Office Visit 04/20/2019 4:40p [facility] Lisa Polo R00.2 Palpitations Juan José Burnham E66.9 Obesity, unspecified Z01.810 Encounter for preprocedural cardiovascular examination R03.0 Elevated blood-pressure reading, w/o diagnosis of htn M22.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, left knee Office Visit 04/14/2019 [facility] Lisa Polo Z01.810 Encounter for 8:30a Cardiology Juan José Burnham preprocedural cardiovascular examination R00.2 Palpitations E66.9 Obesity, unspecified R06.83 Snoring I10 Essential (primary) hypertension R94.31 Abnormal electrocardiogram [ECG] [EKG] R00.0 Tachycardia, unspecified Office Visit 04/12/2019 [facility] Christian Salazar, M22.42 Chondromalacia 3:00p Orthopedics at [place], left knee [place] M25.462 Effusion, left knee Assessments Date Code Description Provider 08/23/2019 S83.282D Other tear of lateral meniscus, Christian Salazar MD current injury, left knee, subsequent encounter 08/23/2019 M22.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, left knee Christian Salazar MD 08/09/2019 E89.0 Postprocedural hypothyroidism Damion Mcmahan MD 08/09/2019 E83.51 Hypocalcemia Damion Mcmahan MD 08/09/2019 Z85.850 Personal history of malignant neoplasm Damion Mcmahan MD of thyroid 08/09/2019 E89.2 Postprocedural hypoparathyroidism Damion Mcmahan MD 07/12/2019 S83.282D Other tear of lateral meniscus, Christian Salazar MD current injury, left knee, subsequent encounter 07/12/2019 M22.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, left knee Christian Salazar MD 07/12/2019 M76.52 Patellar tendinitis, left knee Christian Salazar MD 06/07/2019 S83.282D Other tear of lateral meniscus, [...] Obesity, unspecified Ica ECHO Schedule 04/19/2019 R00.2 Palpitations Lisa Burnham M.D. 04/19/2019 R06.83 Snoring Ica ECHO Schedule 04/19/2019 I10 Essential (primary) hypertension Ica ECHO Schedule 04/19/2019 R94.31 Abnormal electrocardiogram [ECG] [EKG] Ica ECHO Schedule 04/19/2019 R00.0 Tachycardia, unspecified Ica ECHO Schedule 04/14/2019 R00.2 Palpitations Lisa Burnham M.D. 04/14/2019 R00.2 Palpitations Nurse Visit cc 04/14/2019 Z01.810 Encounter for preprocedural Lias Burnham M.D. cardiovascular examination 04/14/2019 R00.2 Palpitations Lisa Burnham M.D. 04/14/2019 E66.9 Obesity, unspecified Lisa Burnham M.D. 04/14/2019 R06.83 Snoring Lisa Burnham M.D. 04/14/2019 I10 Essential (primary) hypertension Lisa Burnham M.D. 04/14/2019 R94.31 Abnormal electrocardiogram [ECG] [EKG] Lisa Burnham M.D. 04/14/2019 R00.0 Tachycardia, unspecified Lisa Burnham M.D. 04/12/2019 M22.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, left knee Christian Salazar MD 04/12/2019 M25.462 Effusion, left knee Christian Salazar MD Plan of Treatment Future Appointment(s):10/21/2019 3:00 pm - Tito Espinosa MD at [facility] at [id number]/08/2019 1:40 pm - Damion Mcmahan MD at [facility] Functional Status Description No Information Available Mental Status Description No Information Available Referrals Refer to Dr Reason for Referral Status Appt Date Damion Mcmahan MD Patient Notified 08/09/[address] [place] [address] [phone] Lisa Burnham MD [facility] Patient has not seen a 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 She has a loop monitor and she is being scheduled for a Left Knee Arthroscopy with Dr. Salazar. Date pending cardiac clearance. Surgery pended for 04/27 or 05/11. [address] [facility] [address] [place] [address] [phone]
--- OUTSIDE RECORDS SUMMARY | 2019-10-06 14:16 | XMS REPORT | Continuity of Care Document ---
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 Allergies, Adverse Reactions, Alerts Active Allergies Reaction Severity Comments Date Penicillin hives 08/13/2018 IV Dye nausea and headache 04/12/2019 Diclofenac hives 08/09/2019 Medications Active Medications SIG Qnty Indications Ordering Provider Date Tums Pt takes 6000 mg Trae 04/13/2019 500mg Chewtabs daily for calcium MD Yonathan Ibuprofen 1 by mouth three 719.41 Unknown 800mg Tablets times a day as needed Fluoxetine HCL 1 by mouth every Unknown 40mg day Capsules Wellbutrin 1 by mouth every Unknown 75mg Tablets day Hydroxyzine HCL 1 by mouth 3 Unknown 10mg times daily as Tablets needed Levothyroxine Sodium 1 by mouth every Unknown 175mcg day Tablets Vitamin D3 1 by mouth every Unknown 25mcg (1000 Ut) day Capsules History Medications Diclofenac Sodium take 1 tablet 60tabs M76.52 Christian Salazar MD 07/12/2019 - twice a day with 08/08/[address] food Percocet 1 tabs by mouth 12tabs Christian Salazar MD 04/27/2019 - 5-325mg every 4-6 hours 05/10/2019 Tablets as needed pain Keflex take 1 tab by 12caps Christian Salazar MD 04/27/2019 - 500mg Capsules mouth four times 05/10/2019 a day x 3 days Immunizations CPT Code Status Date Vaccine Lot # [id number] Given 11/01/2014 Tdap - Tetanus/Diptheria/Acellular Pertussis 77648 Given 03/03/2008 Meningitis MCV4 MenACWY Meningococcal Conjugate Vaccine 48493 Given 11/26/2004 Tetanus And Diptheria (Td) For Adult Use Preservative Free 16959 Given 11/26/2004 Tetanus And Diptheria (Td) For Adult Use Preservative Free 10035 Given 04/28/2002 Hepatitis B Sai Adoles For Intramuscular Use 00747 Given 12/13/2001 Hepatitis B Sai Adoles For Intramuscular Use 60600 Given 03/12/1994 Measles Mumps And Rubella MMR 99676 Given 03/12/1994 DTP Vaccine 02236 Given 03/13/1993 Poliovirus Vaccine OPV Live Oral Use 03030 Given 03/13/1993 DTP Vaccine 30467 Given 06/23/1991 Poliovirus Vaccine OPV Live Oral Use 94212 Given 06/23/1991 DTP Vaccine 77569 Given 04/06/1991 Poliovirus Vaccine OPV Live Oral Use 28250 Given 04/06/1991 Measles Mumps And Rubella MMR 34286 Given 04/06/1991 DTP Vaccine 21686 Given 04/06/1991 Hib PRP-T Conjugate 4 Dose Schedule Vital Signs Date Vital Result Comment 08/09/2019 8:49am Height 64.5 inches 5'4.50" Weight 293.00 lb w/ shoes Heart Rate 91 /min BP Systolic 128 mmHg at end of intake BP Diastolic 88 mmHg at end of intake BP Systolic Sitting 157 mmHg BP Diastolic Sitting 106 mmHg BMI (Body Mass Index) 49.5 kg/m2 07/12/2019 11:02am Height 64.5 inches 5'4.50" Weight 280.00 lb Heart Rate 84 /min BP Systolic 128 mmHg BP Diastolic 96 mmHg Respiratory Rate 16 /min Body Temperature 97.8 F Pain Level 5 BMI (Body Mass Index) 47.3 kg/m2 Results Description No Information Available Procedures Date Code Description Status 04/27/2019 39791 Arthroscopy,Knee,Meniscectomy Medial Or Lateral Completed 04/27/2019 29464 Arthroscopy,Knee,Meniscectomy Medial Or Lateral Completed 04/21/2019 46816 Holter Monitor Review (24 hr)dr review & interp only Completed 04/19/2019 17099 ECHO Transthoracic, Real-Time 2D With Doppler And Color Completed Flow 04/19/2019 02179 ECHO Transthoracic, Real-Time 2D With Doppler And Color Completed Flow 04/19/2019 44615 ECHO Transthoracic, Real-Time 2D With Doppler And Color Completed Flow 04/14/2019 33438 ECG Monitor/Recording W/Visual Superimposition Scanning Completed 04/14/2019 22977 ECG Monitor/Recording W/Visual Superimposition Scanning Completed 04/14/2019 73177 EKG Tracing & Interpretation Completed Medical Devices Description No Information Available Encounters Type Date Location Provider Dx Diagnosis Office Visit 04/20/2019 [place] Michael Gonzalez S. R00.2 Palpitations 4:40p Juan José Burnham E66.9 [...] R00.0 Tachycardia, unspecified Office Visit 04/12/2019 [facility] Salazar, M22.42 Chondromalacia 3:00p Orthopedics at [facility], left knee [place] M25.462 Effusion, left knee Assessments Date Code Description Provider 08/09/2019 E89.0 Postprocedural hypothyroidism Damion Mcmahan MD 08/09/2019 E89.2 Postprocedural hypoparathyroidism Damion Mcmahan MD 08/09/2019 C73 Malignant neoplasm of thyroid gland Damion Mcmahan MD 07/12/2019 S83.282D Other tear [...] Christian Salazar MD Plan of Treatment Future Appointment(s):11/08/2019 1:40 pm - Damion Mcmahan MD at [facility]08/09/2019 - Damion Mcmahan MDE89.0 Postprocedural hypothyroidismFollow up:3 monthsInstructions:1. Blood tests today. 2. Your TSH goal is 0.5-2.0 on levothyroxine. 3. You calcium goal is 8-9 on calcium + vitamin D (or calcitriol). 4. Schedule a thyroid ultrasound in the next 3 months for follow-up of thyroid cancer. 5. We may need to obtain blood tests if changes in calcium or thyroid hormone medications are needed. 6. Reduce calcium intake to 2000mg/day. 7. If necessary, we may perform 24h urine calcium measurements. 8. 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 She has a loop monitor and she is being scheduled for a Left Knee Arthroscopy with Dr. Salazar. Date pending cardiac clearance. Surgery pended for 04/27 or 05/11. [address] [facility] [address] [place] [address] [phone]
--- OUTSIDE RECORDS SUMMARY | 2019-10-06 14:16 | XMS REPORT | Continuity of Care Document ---
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 Allergies, Adverse Reactions, Alerts Active Allergies Reaction Severity Comments Date Penicillin hives 08/13/2018 IV Dye nausea and headache 04/12/2019 Diclofenac hives 08/09/2019 Medications Active Medications SIG Qnty Indications Ordering Date Provider Medrol take as directed 21units S83.282D Christian Salazar MD 08/23/2019 4mg TBPK by packaging Calcitriol 1 capsule by 30caps Damion Mcmahan MD 08/15/2019 0.25mcg mouth daily Capsules Meloxicam 1 tablet by mouth 14tabs Tito Jesús, 08/09/2019 15mg Tablets daily. Levothyroxine Sodium 1 by mouth every [...] 25mcg (1000 day Ut) Capsules History Medications Diclofenac Sodium take 1 [...] CPT Code Status Date Vaccine Lot # [id number] Given 11/01/2014 Tdap - Tetanus/Diptheria/Acellular Pertussis 29683 Given 03/03/2008 Meningitis MCV4 MenACWY Meningococcal Conjugate Vaccine 07695 Given 11/26/2004 Tetanus And Diptheria (Td) For Adult Use Preservative Free 89647 Given 11/26/2004 Tetanus And Diptheria (Td) For Adult Use Preservative Free 86160 Given 04/28/2002 Hepatitis B Sai Adoles For Intramuscular Use 40305 Given 12/13/2001 Hepatitis B Sai Adoles For Intramuscular Use 87331 Given 03/12/1994 Measles Mumps And Rubella MMR 27673 Given 03/12/1994 DTP Vaccine 43928 Given 03/13/1993 Poliovirus Vaccine OPV Live Oral Use 71070 Given 03/13/1993 DTP Vaccine 31838 Given 06/23/1991 Poliovirus Vaccine OPV Live Oral Use 28973 Given 06/23/1991 DTP Vaccine 70867 Given 04/06/1991 Poliovirus Vaccine OPV Live Oral Use 36160 Given 04/06/1991 Measles Mumps And Rubella MMR 25812 Given 04/06/1991 DTP Vaccine 10308 Given 04/06/1991 Hib PRP-T Conjugate 4 Dose Schedule Vital Signs Date Vital Result Comment 08/23/2019 10:01am Height 64.5 inches 5'4.50" Weight 293.00 lb Heart Rate 111 /min Respiratory Rate 16 /min Body Temperature 97.3 F Pain Level 7 BMI (Body Mass Index) 49.5 kg/m2 08/09/2019 8:49am Height 64.5 inches 5'4.50" Weight 293.00 lb w/ shoes Heart Rate 91 /min BP Systolic 128 mmHg at end of intake BP Diastolic 88 mmHg at end of intake BP Systolic Sitting 157 mmHg BP Diastolic Sitting 106 mmHg BMI (Body Mass Index) 49.5 kg/m2 Results Test Acquired Date Facility Test Result H/L Range Note Thyroglobulin 08/09/2019 [facility] Thyroglobulin <1.8 IU/mL <4.[address] [place] [address] [phone] Thyroglobulin Tumor Marker 2.5 ng/mL Abnormal 1 Thyroglobulin Interpretation See Comment 2 Pthi 08/09/2019 [facility] Calcium (PTH 8.6 mg/dL Normal 8.6- 10.[address] DRIVE Intact) [place] [address] [phone] PTH Intact 49.4 pg/mL Normal 12-88 Comp Metabolic 08/09/2019 [facility] Sodium 136 mmol/L Normal 135-[address] [place] [address] [phone] Potassium 3.9 mmol/L Normal 3.5-5.0 Chloride 102 [...] Egfr Non- 71.7 >60 Egfr 86.7 >60 3 Laboratory test 08/09/2019 [facility] TSH (Thyroid 11.38 High 0.34-5.[address] Stim Horm) mcIU/[place] [address] [phone] Free T4 (Free Thyroxine) 0.94 ng/dL Normal 0.61-1.12 1,25 Dihydroxy 08/09/2019 [facility] Calcitriol 10 pg/mL Abnormal 18-78 4 Vitamin D [address] [place] [address] [phone] Laboratory test 08/09/2019 [facility] Vitamin D 24.9 Normal 20 -[address] Total 25(Oh) ng/[place] [address] [phone] Phosphorus 2.9 mg/dL Normal 2.5-5.0 Magnesium 1.7 mg/dL Low 1.9-2.7 1 REFERENCE VALUE Athyrotic <0.1 Intact Thyroid <=33 2 Thyroglobulin (Tg) levels must be interpreted in [...] testing methods are immunoenzymatic assays manufactured by [employer] and performed on the [employer] 800. Values obtained from different assay methods or kits may be different and cannot be used interchangeably. The results cannot be interpreted as absolute evidence for the presence or absence of malignant disease. Test Performed by: [facility] [place] [address] Bowl Attendant: Jorje Roque M.D. Ph.D.; CLIA# [id number] 3 Because ethnic data is not always readily [...] 15-29 5 Kidney failure <15 (or dialysis) 4 ADDITIONAL INFORMATION This test was developed and its performance characteristics determined by [facility] in a manner consistent with CLIA requirements. This test has not been cleared or approved by the U.S. Food and Drug Administration. Test Performed by: [facility] [place] [address] Bowl Attendant: Jorje Roque M.D. Ph.D.; CLIA# [id number] 5 Total 25-Hydroxyvitamin D2 and D3 (25-OH-VitD) <10 ng/mL (severe deficiency) 10-19 ng/mL (mild to moderate deficiency) 20-50 ng/mL (optimum levels) 51-80 ng/mL (increased risk of hypercalciuria) >80 ng/mL (toxicity possible) Procedures Date Code Description Status 04/27/2019 57535 Arthroscopy,Knee,Meniscectomy Medial Or Lateral Completed 04/27/2019 98772 Arthroscopy,Knee,Meniscectomy Medial Or Lateral Completed 04/21/2019 39346 Holter Monitor Review (24 hr)dr review & interp only Completed 04/19/2019 31315 ECHO Transthoracic, Real-Time 2D With Doppler And Color Completed Flow 04/19/2019 78464 ECHO Transthoracic, Real-Time 2D With Doppler And Color Completed Flow 04/19/2019 03059 ECHO Transthoracic, Real-Time 2D With Doppler And Color Completed Flow 04/14/2019 98245 ECG Monitor/Recording W/Visual Superimposition Scanning Completed 04/14/2019 01852 ECG Monitor/Recording W/Visual Superimposition Scanning Completed 04/14/2019 90585 EKG Tracing & Interpretation Completed Medical Devices Description No Information Available Encounters Type Date Location Provider Dx Diagnosis Office Visit 08/09/2019 [facility] Damion Mcmahan MD E89.0 Postprocedural 9:00a [facility] hypothyroidism E83.51 Hypocalcemia Z85.850 Personal history of malignant neoplasm of thyroid E89.2 Postprocedural hypoparathyroidism Office Visit 04/20/2019 4:40p [facility] Lisa S. R00.2 Palpitations Juan José Burnham E66.9 Obesity, unspecified Z01.810 Encounter for preprocedural cardiovascular examination R03.0 Elevated blood-pressure reading, w/o diagnosis of htn M22.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, left knee Office Visit 04/14/2019 [facility] S. Z01.810 Encounter for 8:30a Cardiology Juan José Burnham preprocedural cardiovascular examination R00.2 Palpitations E66.9 Obesity, unspecified R06.83 Snoring I10 Essential (primary) hypertension R94.31 Abnormal electrocardiogram [ECG] [EKG] R00.0 Tachycardia, unspecified Office Visit 04/12/2019 [facility] Christian Salazar, M22.42 Chondromalacia 3:00p Orthopedics at [facility] sand[facility], left knee [place] M25.462 Effusion, left knee Assessments Date Code [...] 07/12/2019 S83.282D Other tear of lateral meniscus, Christina Salazar MD current injury, left knee, subsequent encounter 07/12/2019 M22.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, left knee Christian Salazar MD 07/12/2019 M76.52 Patellar tendinitis, left knee Chritsian Salazar MD 06/07/2019 S83.282D Other tear of [...] Christian Salazar MD Plan of Treatment Future Appointment(s):09/15/2019 2:30 pm - Christian Salazar MD at [facility] at [facility]2311/08/2019 1:40 pm - Damion Mcmahan MD at [facility]08/23/2019 - Christian Salazar, MDS83.282D Other tear of lateral meniscus, current injury, left knee, subsequent encounterNew Medication: Medrol 4 mg - take as directed by packagingFollow up:Follow up: 2-3 wmvfmL40.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, left knee Functional Status Description No Information Available Mental Status Description No Information Available Referrals Refer to Reason for Referral Status Appt Date Damion Mcmahan MD Patient Notified 08/09/[address] [place] [address] [phone] Lisa Burnham MD [facility] 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 She has a loop monitor and she is being scheduled for a Left Knee Arthroscopy with Dr. Salazar. Date pending cardiac clearance. Surgery pended for 04/27 or 05/11. [address] [facility] [address] [place], [place] [id number] [phone]
--- OUTSIDE RECORDS SUMMARY | 2019-10-06 14:16 | XMS REPORT | Continuity of Care Document ---
:1990 External Reference #:[id number] Author Name Christian Salazar MD (transmitted by agent of provider Jennifer Sanchez) Address [address] [facility] [place] [address] Care Team Providers Name Role Phone 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 Advanced Problems Active Problems Provider Date Postconcussion syndrome [...] CPT Code Status Date Vaccine Lot # [id number] Given 11/01/2014 Tdap - Tetanus/Diptheria/Acellular Pertussis 12620 Given 03/03/2008 Meningitis MCV4 MenACWY Meningococcal Conjugate Vaccine 31371 Given 11/26/2004 Tetanus And Diptheria (Td) For Adult Use Preservative Free 98139 Given 11/26/2004 Tetanus And Diptheria (Td) For Adult Use Preservative Free 27238 Given 04/28/2002 Hepatitis B Sai Adoles For Intramuscular Use 48366 Given 12/13/2001 Hepatitis B Sai Adoles For Intramuscular Use 66126 Given 03/12/1994 Measles Mumps And Rubella MMR 76443 Given 03/12/1994 DTP Vaccine 81525 Given 03/13/1993 Poliovirus Vaccine OPV Live Oral Use 26346 Given 03/13/1993 DTP Vaccine 79077 Given 06/23/1991 Poliovirus Vaccine OPV Live Oral Use 06049 Given 06/23/1991 DTP Vaccine 36231 Given 04/06/1991 Poliovirus Vaccine OPV Live Oral Use 16027 Given 04/06/1991 Measles Mumps And Rubella MMR 95838 Given 04/06/1991 DTP Vaccine 26278 Given 04/06/1991 Hib PRP-T Conjugate 4 Dose [...] IU/mL <4.[address] [place] [address] [phone] Thyroglobulin Tumor Marker 2.5 ng/mL Abnormal 1 Thyroglobulin Interpretation See Comment 2 Pthi 08/09/2019 [facility] Calcium (PTH 8.6 mg/dL Normal 8.6- 10.[address] DRIVE Intact) [place] [address] [phone] PTH Intact 49.4 pg/mL Normal 12-88 Comp Metabolic 08/09/2019 [facility] Sodium 136 mmol/L Normal 135-[address] [place] [address] [phone] Potassium 3.9 mmol/L Normal 3.5-5.0 Chloride 102 [...] finding [address] Stim Horm) mcIU/[place] [address] [phone] Free T4 (Free Thyroxine) 0.94 ng/dL Normal 0.61-1.12 1,25 Dihydroxy 08/09/2019 [facility] Calcitriol 10 pg/mL Abnormal 18-78 4 Vitamin D [address] [place] [address] [phone] Laboratory test 08/09/2019 [facility] Vitamin D 24.9 Normal 20 -[address] Total 25(Oh) ng/[place] [address] [phone] Phosphorus 2.9 mg/dL Normal 2.5-5.0 Magnesium 1.7 [...] testing methods are immunoenzymatic assays manufactured by [employer] and performed on the [employer] 800. Values obtained from different assay methods or kits may be different and cannot be used interchangeably. The results cannot be interpreted as absolute evidence for the presence or absence of malignant disease. Test Performed by: [facility] [place] [address] Environmental Web Crawler: Jorje Roque M.D. Ph.D.; CLIA# [id number] 3 Because ethnic data is not always [...] developed and its performance characteristics determined by [facility] in a manner consistent with CLIA requirements. This test has not been cleared or approved by the U.S. Food and Drug Administration. Test Performed by: [facility] [place] [address] Environmental Web Crawler: Jorje Roque M.D. Ph.D.; CLIA# [id number] 5 Total 25-Hydroxyvitamin D2 and D3 (25-OH-VitD) <10 ng/mL (severe deficiency) 10-19 ng/mL (mild to moderate deficiency) 20-50 ng/mL (optimum levels) 51-80 ng/mL (increased risk of hypercalciuria) >80 ng/mL (toxicity possible) Procedures Date Code Description Status 04/27/2019 55762 Arthroscopy,Knee,Meniscectomy Medial Or Lateral Completed 04/27/2019 38761 Arthroscopy,Knee,Meniscectomy Medial Or Lateral Completed 04/21/2019 07341 Holter Monitor Review (24 hr)dr review & interp only Completed 04/19/2019 11716 ECHO Transthoracic, Real-Time 2D With Doppler And Color Completed Flow 04/19/2019 38126 ECHO Transthoracic, Real-Time 2D With Doppler And Color Completed Flow 04/19/2019 06567 ECHO Transthoracic, Real-Time 2D With Doppler And Color Completed Flow 04/14/2019 01717 ECG Monitor/Recording W/Visual Superimposition Scanning Completed 04/14/2019 14421 ECG Monitor/Recording W/Visual Superimposition Scanning Completed 04/14/2019 26849 EKG Tracing & Interpretation Completed Medical Devices Description No Information Available Encounters Type Date Location Provider Dx Diagnosis Office Visit 08/09/2019 [facility] Damion Mcmahan MD E89.0 Postprocedural 9:00a [facility] hypothyroidism E83.51 Hypocalcemia Z85.850 Personal history of malignant neoplasm of thyroid E89.2 Postprocedural hypoparathyroidism Office Visit 04/20/2019 4:40p [facility] Lisa S. R00.2 Palpitations Juan José Burnham E66.9 Obesity, unspecified Z01.810 Encounter for preprocedural cardiovascular examination R03.0 Elevated blood-pressure reading, w/o diagnosis of htn M22.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, left knee Office Visit 04/14/2019 [place] [facility] [place] [facility] Z01.810 Encounter for 8:30a Cardiology Juan José Burnham preprocedural cardiovascular examination R00.2 Palpitations E66.9 Obesity, unspecified R06.83 Snoring I10 Essential (primary) hypertension R94.31 Abnormal electrocardiogram [ECG] [EKG] R00.0 Tachycardia, unspecified Office Visit 04/12/2019 [place] Christian Salazar, M22.42 Chondromalacia 3:00p Orthopedics at [facility], left knee [place] M25.462 Effusion, left knee Assessments Date Code [...] 2:30 pm - Christian Salazar MD at [place] at [facility]7811/08/2019 1:40 pm - Damion Mcmahan MD at [place]08/23/2019 - Christian Salazar, MDS83.282D Other tear of lateral meniscus, current injury, left knee, subsequent encounterNew Medication: Medrol 4 mg - take as directed by packagingFollow up:Follow up: 2-3 sugidK61.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, left knee Functional Status Description No Information Available Mental Status Description No Information Available Referrals Refer to Reason for Referral Status Appt Date Damion Mcmahan MD Patient Notified 08/09/[address] [place] [address] [phone] Lisa Burnham MD [facility] 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 She has a loop monitor and she is being scheduled for a Left Knee Arthroscopy with Dr. Salazar. Date pending cardiac clearance. Surgery pended for 04/27 or 05/11. [address] [facility] [address] Floor [place], [place] [address] [phone]
[2019-10-06 14:40] VITALS: BP 153/93
--- NOTE | 2019-10-06 14:50 | UC ---
FLU HPI - HPI Summary HPI Summary: 28yo female presenting with mother for "cold symptoms" x5 days. States URI symptoms at first but then 2 days ago developed dry cough that is worsening. Also notes she developed fever of 101 last night. Denies sob and wheezing. Notes nausea. No vomiting. Decreased appetite and "not drinking as much fluid as she should." - History of Current Complaint Stated Complaint: FEVER,ST,COUGH Hx Obtained From: Patient Hx Last Menstrual Period: 09/2019 Pain Intensity: 7 Pain Scale Used: 0-10 Numeric - Allergy/Home Medications Allergies/Adverse Reactions: Allergies Allergy/AdvReac Type Severity Reaction Status Date / Time Penicillins Allergy Intermediate Itching Verified 10/06/19 14:37 contrast dye AdvReac Headache Uncoded 10/06/19 14:37 Home Medications: Home Medications Levothyroxine TAB* [Synthroid TAB*] 200 mcg PO 0600 06/10/18 [History Confirmed 10/06/19] FLUoxetine CAP* [Prozac CAP*] 40 mg PO QPM 07/10/18 [History Confirmed 10/06/19] hydrOXYzine HCL TAB* [Atarax 10 MG TAB*] 10 mg PO TID PRN 01/31/19 [History Confirmed 10/06/19] Calcitriol CAP* [Rocaltrol CAP*] 0.25 mcg PO DAILY 10/06/19 [History Confirmed 10/06/19] Meloxicam [Mobic] 7.5 mg PO DAILY 10/06/19 [History Confirmed 10/06/19] guaiFENesin ER TAB [Mucinex*] 600 mg PO BID 10/06/19 [History Confirmed 10/06/19 ] PMH/Surg Hx/FS Hx/Imm Hx Endocrine History: Hypothyroidism - Surgical History Surgical History: Yes Surgery Procedure, Year, and Place: 2013 & JUN. PARTIAL Thyroidectomy, THEN COMPLETED [facility]. 2010 RIGHT WRIST GANGIONECTOMY [place]. left knee, apr 2019. vocal cord surgery - Family History Known Family History: Positive: Other - DEGENERATIVE DISC DISEASE IN MOTHER Family History: cancer - Social History Alcohol Use: None Alcohol Amount: MAYBE 1-2 DRINKS/YEAR Substance Use Type: None Smoking Status (MU): Never Smoked Tobacco Have You Smoked in the Last Year: No - Immunization History Most Recent Influenza Vaccination: no Review of Systems All Other Systems Reviewed And Are Negative: Yes Constitutional: Positive: Fever, Fatigue ENT: Positive: Sinus Congestion Respiratory: Positive: Cough. Negative: Shortness Of Breath Cardiovascular: Positive: Negative Gastrointestinal: Positive: Nausea. Negative: Abdominal Pain, Vomiting Musculoskeletal: Positive: Negative Neurological/Mental Status: Positive: Negative Physical Exam - Summary Physical Exam Summary: Vital Signs Reviewed: Yes A+Ox3, no distress, well-appearing, diaphoretic Eyes: Conjunctiva Clear ENT: Hearing grossly normal, TM x 2 clear, moist, uvula midline, no exudate, no erythema Neck: Positive: Supple Respiratory: Positive: No respiratory distress, No accessory muscle use + CTA throughout no w/r Cardiovascular: tachycardia, regular rhythm nl s1, s2 no m/r Musculoskeletal Exam: MENDOZA x 4 without difficulty Neurological: Positive: Alert Psychological: Positive: age appropriate behavior Skin: Positive: no rash, no ecchymosis Vital Signs: Initial Vital Signs Temp 97.3 F 10/06/19 14:35 Pulse 115 10/06/19 14:35 Resp 18 10/06/19 14:35 BP 153/93 10/06/19 14:35 Pulse Ox 98 10/06/19 14:35 Lab Results 10/06/19 Range/Units 14:46 Influenza A (Rapid) Positive H (Negative) Flu Course/Dx - Course Course Of Treatment: Positive rapid flu A. Discussed influenza with patient and educated on symptomatic treatment. Discussed s/s of worsening respiratory illness and instructed to go to ED with any red flags. Patient voiced understanding and agreed with treatment plan. - Differential Dx/Diagnosis Provider Diagnosis: Influenza A Discharge ED - Sign-Out/Discharge Documenting (check all that apply): Patient Departure All imaging exams completed and their final reports reviewed: No Studies - Discharge Plan Condition: Stable Disposition: HOME Patient Education Materials: Influenza (ED) Referrals: Elisa Lieberman [Primary Care Provider] - If Needed Additional Instructions: You tested positive for influenza A today. You may continue with over the counter cold and flu medication as directed. Get plenty of rest and increase your fluid intake. Go to the emergency room with any new or worsening symptoms. - Billing Disposition and Condition Condition: STABLE Disposition: Home - Attestation Statements Provider Attestation: This patient was not seen by me. I was available for consult. Chart reviewed. CARRIE
[2019-10-06 14:51] LABS: Influenza A Molecular POSITIVE (Negative)
== END 2019-10-06 15:14 | disposition home or self-care (01) ==
LOC: UCCORT 12:53
DX: J10.1 Influenza due to other identified influenza virus with other respiratory manifestations (principal); E03.9 Hypothyroidism, unspecified; Z79.890 Hormone replacement therapy; Z88.0 Allergy status to penicillin; Z91.040 Latex allergy status
CPT/HCPCS: 99211; G0463